=== PATIENT | male | born 1950 | race Caucasian/White ===

== ENCOUNTER → 2020-12-31 10:19 | Outpatient (CLI) | payer MEDICARE, SELFPAY ==
[2020-12-31 12:37] LABS: Rheumatoid Factor < 8.6 IU/mL (<12.0)
[2020-12-31 12:42] LABS: Erythrocyte Sedimentation Rate 46 MM/HR (0-15)
[2020-12-31 12:52] LABS: C-Reactive Protein Quant 12.2 mg/dL (<1.0)
[2020-12-31 14:10] LABS: Creatine Kinase 160 U/L (55-170)
[2021-01-03 05:39] LABS: CCP Antibodies IgG/IgA 8 units (0-19)
[2021-01-03 14:30] LABS: ANA Screen, IFA Negative (.)
== END ==
PROVIDERS: PCP Family Medicine; Referring Provider Family Medicine; Visit Provider Family Medicine
DX: M79.10 Myalgia, unspecified site (principal)
CPT/HCPCS: 36415; 82550; 84550; 85651; 86038; 86140; 86200; 86430